=== PATIENT | female | born 1945 | race Caucasian/White ===

== ENCOUNTER 2021-04-09 14:13 | Emergency (ER) | payer OTHER ==
[~2021-04-09] VITALS: Ht 162.6 cm; Wt 48.5 kg
[~2021-04-09 14:13] MED LIST: IBUP-2076 PO; MACR100 PO
[2021-04-09 15:09] VITALS: BP 144/62
[2021-04-09] MEDS ORDERED: ACET1TAB25 PO (16:03)
== END 2021-04-09 16:09 | disposition home or self-care (01) ==
LOC: EDH 14:13
DX: N28.1 Cyst of kidney, acquired (principal); E78.00 Pure hypercholesterolemia, unspecified; I10 Essential (primary) hypertension; Z88.2 Allergy status to sulfonamides; Z88.5 Allergy status to narcotic agent; Z79.1 Long term (current) use of non-steroidal anti-inflammatories (NSAID); Z90.49 Acquired absence of other specified parts of digestive tract